=== PATIENT | male | born 1960 | race Caucasian/White ===

== ENCOUNTER 2017-03-11 11:59 | Emergency (ER) | payer BC ==
[2017-03-11 12:44] LABS: HEMATOCRIT 48.7 % (39.0-50.0); HEMOGLOBIN 16.9 g/dl (14.0-18.0); IMMATURE GRANULOCYTES 0.7 % (0.0-1.0); MEAN CELL VOLUME 86.8 fL CALC (80.0-100.0); MEAN CORPUSCULAR HGB 30.1 pG CALC (26.0-32.0); MEAN CORPUSCULAR HGB CONC 34.7 g/L CALC (32.0-36.0); NEUT# 7.43 thou/uL (1.82-7.42); RED BLOOD COUNT 5.61 mill/uL (4.70-6.10); RED CELL DISTRI WIDTH 12.7 % (11.5-15.5)
[2017-03-11 13:04] LABS: ALBUMIN 4.8 g/dL (3.2-5.0); ALKALINE PHOSPHATASE 98 u/l (38-126); AMYLASE 37 u/l (30-110); ANION GAP 18 (6-22 (CALC)); BILIRUBIN, TOTAL 1.6 mg/dL (0.0-1.4); BUN 13 mg/dL (9-20); BUN/CREATININE RATIO 20 (12-20 (CALC)); CALCIUM 10.5 mg/dL (8.4-10.2); CARBON DIOXIDE 28 mmol/l (22-30); CHLORIDE 99 mmol/l (95-108); CREATININE 0.6 mg/dL (0.7-1.3); GFR > 60 ML/MIN (>=60 (CALC)); GFR FOR AFR.AMER. > 60 ML/MIN (>=60 (CALC)); GLUCOSE 196 mg/dL (75-110); LIPASE 67 u/l (23-300); POTASSIUM 4.7 mmol/l (3.5-5.1); SGOT/AST 27 u/l (17-59); SGPT/ALT 53 u/l (21-72); SODIUM 140 mmol/l (137-146); TOTAL PROTEIN 7.7 g/dL (6.3-8.2)
[2017-03-11] MEDS ORDERED: METFORMIN500 MG PO (14:14)
[2017-03-11] MEDS ORDERED: LIPITOR20 MG PO (14:15)
[2017-03-11 14:45] LABS: URINE BILIRUBIN - DIPSTICK NEGATIVE (NEGATIVE); URINE BLOOD DIPSTICK NEGATIVE (NEGATIVE); URINE COLOR YELLOW; URINE GLUCOSE - DIPSTICK NEGATIVE (NEGATIVE); URINE KETONE NEGATIVE (NEGATIVE); URINE LEUK ESTERASE NEGATIVE (NEGATIVE); URINE NITRITE - DIPSTICK NEGATIVE (Negative); URINE PH 6.5 (4.5-8.0); URINE PROTEIN - DIPSTICK 100 mg/dL (NEG-TRACE); URINE SPECIFIC GRAVITY 1.025
[2017-03-11 14:48] LABS: URINE CLARITY CLEAR
[2017-03-11 14:56] LABS: URINE RBC 0-2 RBC/hpf (0-5); URINE WBC 0-2 WBC/hpf (0-5)
[2017-03-11] MEDS ORDERED: TRAMADOL HYDROC50 MG PO (16:21)
[2017-03-11] MEDS ORDERED: EC-NAPROSYN500 MG PO (16:21)
[2017-03-11] MEDS ORDERED: LORTAB 5/3255 MG PO (17:08)
[2017-03-11] MEDS ORDERED: FLEXERIL PO (17:09)
[2017-03-11 17:27] VITALS: BP 118/68
== END 2017-03-11 17:10 | disposition home or self-care (01) | DRG 395 ==
LOC: ED 11:59
PROVIDERS: Emergency Medicine
DX: K42.9 Umbilical hernia without obstruction or gangrene (principal); M54.42 Lumbago with sciatica, left side

== ENCOUNTER 2018-09-06 23:10 | Emergency (ER) | payer BC ==
[~2018-09-06] VITALS: Ht 172.7 cm; Wt 93.2 kg
[~2018-09-06 23:10] MED LIST: EC-NAPROSYN500 MG PO; FLEXERIL PO; LIPITOR20 MG PO; LORTAB 5/3255 MG PO; METFORMIN500 MG PO; TRAMADOL HYDROC50 MG PO
[2018-09-07 00:10] VITALS: BP 114/56
== END 2018-09-07 00:10 | disposition home or self-care (01) | DRG 605 ==
LOC: ED 23:10
PROC: 0HQ0XZZ Repair Scalp Skin, External Approach (ICD-10-PCS; principal; 2018-09-06)
DX: S01.01XA Laceration without foreign body of scalp, initial encounter (principal); E11.9 Type 2 diabetes mellitus without complications; I10 Essential (primary) hypertension; Y04.2XXA Assault by strike against or bumped into by another person, initial encounter; Y93.89 Activity, other specified; Y92.009 Unspecified place in unspecified non-institutional (private) residence as the place of occurrence of the external cause